=== PATIENT | female | born 1975 | race Caucasian/White ===

== ENCOUNTER 2024-02-13 13:04 | Emergency (ER) | payer MEDICAID, SELFPAY ==
[2024-02-13 13:06] VITALS: BP 112/85; PULSE 85; RESP 16; TEMP 36.3; O2SAT 98; BMI 28.3
[2024-02-13 15:05] VITALS: BP 126/90; PULSE 68; RESP 18; O2SAT 92
--- NOTE | 2024-02-13 15:30 | US_ITS ---
EXAM: US PELVIS TRANSVAGINAL CLINICAL INDICATION: pelvic pain, menorrhagia TECHNIQUE: Transvaginal pelvic ultrasound was performed with grayscale and color Doppler imaging. Transvaginal imaging was used for better evaluation of the endometrium and adnexa. COMPARISON: No relevant prior studies available. FINDINGS: UTERUS/CERVIX: Nabothian cysts are present. The uterus is heterogenous. Anteverted. There is no uterine mass. The uterus measures 9.8 x 5.1 x 4.6 cm. The endometrial stripe measures 0.7 cm in thickness. RIGHT OVARY: No significant abnormality. Blood flow is present in the right ovary. The right ovary measures 2.7 x 2.6 x 1.3 cm. LEFT OVARY: The left ovary is not visualized. FREE FLUID: None. BLADDER: Empty bladder which cannot be evaluated with this probe. US/Transvaginal Non- IMPRESSION: The left ovary is not visualized. Otherwise, no acute findings are identified. Electronically Signed: Ismael Wylie DO at 18:08 EDT ,
[2024-02-13 15:47] LABS: Absolute Lymphocyte Count 3.53 X10^3/uL (0.83-4.51); Absolute Neutrophil Count 3.8 X10^3/uL (2.0-7.7); Basophil# 0.04 X10^3/uL; Basophil% 0.5 % (0-1); Eosinophil# 0.14 X10^3/uL; Eosinophils% 1.7 % (0-5); Hematocrit 40.2 % (37-47); Hemoglobin 12.9 g/dL (12.0-15.0); Lymphocyte # 3.53 X10^3/ul (0.83-4.51); Lymphocyte % 43.2 % (19-41); Mean Corp Hgb Conc 32.1 g/dL (32-36); Mean Corpuscular Volume 99.8 fL (81-99); Mean Platelet Vol. 10.8 fl (6.2-12.0); Monocyte# 0.65 X10^3/uL; Monocyte% 7.9 % (0-10); NRBC Flagged by Analyzer 0 % (0-5); Neutrophil # 3.78 X10^3/uL (2.7-7.7); Neutrophil % 46.2 % (47-70); Platelet Count 342 K/mm3 (150-450); RBC Distribution Width CV 12.6 % (11.6-14.6); RBC Distribution Width SD 45.9 fl (35.1-43.9); Red Blood Count 4.03 M/mm3 (4.2-5.4); White Blood Count 8.2 K/mm3 (4.4-11.0)
[2024-02-13 15:48] LABS: Internal QC Validated? YES +Cl - CLEAR BKGD; Pregnancy, Serum, hCG Quali. NEGATIVE Negative
[2024-02-13] MEDS: 0.9% Normal Saline (1000mL) 1,000 ML 150 ML IV (16:04)
[2024-02-13] MEDS: traMADol 50 MG Tablet 100 MG PO (16:05)
[2024-02-13 16:16] LABS: International Normalized Ratio 0.9; Prothrombin Time (Protime)PT. 12.5 SECONDS (11.7-14.9)
[2024-02-13 16:17] LABS: Partial Thromboplast Time 25.4 Seconds (24.1-36.2)
[2024-02-13 16:20] LABS: Absolute Lymphocyte Count 3.47 X10^3/uL (0.83-4.51); Absolute Neutrophil Count 3.4 X10^3/uL (2.0-7.7); Basophil# 0.03 X10^3/uL; Basophil% 0.4 % (0-1); Eosinophil# 0.13 X10^3/uL; Eosinophils% 1.7 % (0-5); Hematocrit 36.2 % (37-47); Lymphocyte # 3.47 X10^3/ul (0.83-4.51); Lymphocyte % 44.9 % (19-41); Mean Corp Hgb Conc 33.1 g/dL (32-36); Mean Corpuscular Volume 99.5 fL (81-99); Mean Platelet Vol. 10.6 fl (6.2-12.0); Monocyte# 0.64 X10^3/uL; Monocyte% 8.3 % (0-10); NRBC Flagged by Analyzer 0 % (0-5); Neutrophil # 3.44 X10^3/uL (2.7-7.7); Neutrophil % 44.4 % (47-70); Platelet Count 329 K/mm3 (150-450); RBC Distribution Width CV 12.5 % (11.6-14.6); RBC Distribution Width SD 45.8 fl (35.1-43.9); Red Blood Count 3.64 M/mm3 (4.2-5.4); White Blood Count 7.7 K/mm3 (4.4-11.0)
[2024-02-13 16:22] LABS: Anion Gap 5 (5-15); BUN 8 mg/dL (7-18); Calcium,Total 8.8 mg/dL (8.5-10.1); Chloride 108 mmol/L (98-107); EST Glomerular Filtration Rate 81 mL/min (>60); Est Glom Filt Rate - Afr Amer 98 mL/min (>60); Glucose 120 mg/dL (74-106); Potassium 3.7 mmol/L (3.5-5.1); Sodium Level 139 mmol/L (136-145)
[2024-02-13 16:29] LABS: Color, Urine Yellow (Yellow); Glucose, Dipstick Normal (Normal); Ketone-Dipstick Negative (Negative); Leukocyte Esterase-Dipstick Negative /ul (Negative); Nitrite-Dipstick Negative (Negative); Occult Blood-Urine 250 /ul (Negative); Protein-Dipstick Negative (Negative); Urine Bilirubin Dipstick Negative (Negative); Urine Clarity Clear (Clear); Urine Urobilinogen Normal (Normal)
[2024-02-13 16:32] LABS: Internal QC Validated? YES +Cl - CLEAR BKGD; Pregnancy, Serum, hCG Quali. NEGATIVE Negative
--- NOTE | 2024-02-13 16:54 | EDS_ITS ---
HPI HPI - Female History of Present Illness Chief Complaint: Vag Bleeding Detail of Chief Complaint: Pelvic pain Informant: patient Narrative Narrative: Patient present secondary to pelvic pain and vaginal bleeding. She is a history of endometriosis and had surgery for endometriosis in 2019. She moved to the [facility] and does not have a doctor here for follow-up. She reports increasing pelvic pain for the past 3 weeks. She states it seems to be centered over the ovaries and is throbbing in nature. She developed vaginal bleeding 3 days ago with large clots. She states this is about a week earlier than her normal period. [facility] Medical History (Updated 02/13/24 @ 18:[address] Rita Humphreys MD) Endometriosis Home Medications ?Medication ?Instructions ?Recorded ?Last Taken ?Type tramadol 50 mg tablet 100 mg (2 x 50 mg) PO Q6H PRN pain 02/13/24 Unknown Rx 3 days #24 tabs Allergy/AdvReac Type Severity Reaction Status Date / Time acetaminophen (From Percocet) Allergy Mild ITCHING Verified 02/13/24 13:06 metronidazole (From Flagyl) Allergy Mild REDNESS Verified 02/13/24 13:06 oxycodone (From Percocet) Allergy Mild ITCHING Verified 02/13/24 13:06 ibuprofen AdvReac Intermediate Vomiting Verified 02/13/24 13:06 Social History Smoking Status: Never smoker ROS ROS ED Constitutional Constitutional ED: Denies chills or fever(s) Eyes Eyes: Denies discharge from eye(s) ENT ENT ED: Denies discharge from eye(s), rhinorrhea or sore throat Cardiovascular Cardiovascular: Denies chest pain or palpitations Respiratory/Chest Respiratory/Chest: Denies cough or dyspnea Gastrointestinal Gastrointestinal: Reports abdominal pain; Denies diarrhea, nausea or vomiting Genitourinary Genitourinary ED: Denies difficulty urinating or dysuria Musculoskeletal Musculoskeletal: Denies back pain or extremity pain Integumentary Denies Abrasions or rash Neurologic Neurologic: Denies headache(s) or weakness Psychiatric Psychiatric: Reports anxiety; Denies depression Allergic/Immunologic Allergic/Immunologic ED: Denies lip swelling or urticaria EXAM Physical Exam Const Vital Signs: 02/13/24 13:06 02/13/24 15:05 02/13/24 19:00 Temperature 97.3 F L 98.0 F Temperature Source Temporal Temporal Pulse Rate 85 68 66 Respiratory Rate 16 18 16 Blood Pressure 112/85 H 126/90 H 133/84 H Blood Pressure Mean 94 102 100 Pulse Ox 98 92 94 Oxygen Delivery Method Room Air Room Air Room Air 02/13/24 19:02 Temperature 98.0 F Temperature Source Pulse Rate 66 Respiratory Rate 16 Blood Pressure 133/84 H Blood Pressure Mean 100 Pulse Ox 94 Oxygen Delivery Method Positive well nourished and well developed General Appearance ED: well developed HEENT Reports moist mucous membranes Eyes EOMs intact bilaterally Chest Wall inspection of chest normal and palpation of chest normal Resp normal respiratory effort and clear to auscultation bilaterally Cardio regular rate and regular rhythm GI GI Narrative: Abdomen soft with tenderness of the lower abdomen. No guarding or rebound. No palpable masses. Extremity normal to inspection Neuro oriented x3 and no sensory deficits noted Motor Exam: strength 5/5 throughout Psych Mood & Affect: anxious MDM MDM MDM Narrative Medical decision making narrative: IV line established. Labwork obtained to evaluate for leukocytosis, anemia, and electrolyte derangement. Urinalysis obtained to evaluate for infection/hematuria. Pelvic ultrasound will be obtained to evaluate for endometrial wall thickness, mass, fibroid. History & Record Review Discussion w/independent historian: Patient and Significant other Lab Data Attestation: I reviewed the patient's lab results. Labs: Laboratory Results - last 24 hr 02/13/24 02/13/24 02/13/24 15:15 15:52 15:55 WBC 8.2 RBC 4.03 L Hgb 12.9 Hct 40.2 MCV 99.8 H MCH 32.0 MCHC 32.1 RDW Std Deviation 45.9 H RDW Coeff of Goldie 12.6 Plt Count 342 MPV 10.8 Immature Gran % (Auto) 0.500 Neut % (Auto) 46.2 L Lymph % (Auto) 43.2 H [place] % (Auto) 7.9 Eos % (Auto) 1.7 Baso % (Auto) 0.5 Absolute Neuts (auto) 3.8 Absolute Lymphs (auto) 3.53 Nucleated RBC % 0 PT 12.5 INR 0.9 APTT 25.4 Sodium 139 Potassium 3.7 Chloride 108 H Carbon Dioxide 26.0 Anion Gap 5 BUN 8 Creatinine 0.80 Estim Creat Clear Calc 81.20 Est GFR (MDRD) Af Amer 98 Est GFR (MDRD) Non-Af 81 BUN/Creatinine Ratio 10.0 Glucose 120 H Calcium 8.8 Serum , Qual NEGATIVE Urine Color Yellow Urine Clarity Clear Urine pH 6.0 Ur Specific [place] 1.020 Urine Protein Negative Urine Glucose (UA) Normal Urine Ketones Negative Urine Occult Blood 250 H Urine Nitrite Negative Urine Bilirubin Negative Urine Urobilinogen Normal Ur Leukocyte Esterase Negative Urine RBC 0-5 SEEN Urine WBC 0-5 SEEN Ur Squamous Epith Cells 5-10 SEEN Urine Bacteria 2+ Urine Mucus 1+ 02/13/24 16:14 WBC 7.7 RBC 3.64 L Hgb 12.0 Hct 36.2 L MCV 99.5 H MCH 33.0 H MCHC 33.1 RDW Std Deviation 45.8 H RDW Coeff of Goldie 12.5 Plt Count 329 MPV 10.6 Immature Gran % (Auto) 0.300 Neut % (Auto) 44.4 L Lymph % (Auto) 44.9 H [place] % (Auto) 8.3 Eos % (Auto) 1.7 Baso % (Auto) 0.4 Absolute Neuts (auto) 3.4 Absolute Lymphs (auto) 3.47 Nucleated RBC % 0 PT INR APTT Sodium Potassium Chloride Carbon Dioxide Anion Gap BUN Creatinine Estim Creat Clear Calc Est GFR (MDRD) Af Amer Est GFR (MDRD) Non-Af BUN/Creatinine Ratio Glucose Calcium Serum , Qual NEGATIVE Urine Color Urine Clarity Urine pH Ur Specific [place] Urine Protein Urine Glucose (UA) Urine Ketones Urine Occult Blood Urine Nitrite Urine Bilirubin Urine Urobilinogen Ur Leukocyte Esterase Urine RBC Urine WBC Ur Squamous Epith Cells Urine Bacteria Urine Mucus Radiography Diagnostic Testing: Clinical Impression(s) from Imaging Studies Transvaginal US 02/13/24 15:30 IMPRESSION: The left ovary is not visualized. Otherwise, no acute findings are identified. Electronically Signed: Ismael Wylie DO at 18:08 EDT , Treatment and Re-Evaluation Narrative: CBC reveals normal white count 8.2 with normal differential. Hemoglobin is 12.9. Chemistry studies are unremarkable. test negative. Urinalysis reveals 2+ bacteria with 5-10 epithelial cells. 0-5 white cells with negative nitrites. Pelvic ultrasound reveals left ovary not to be visualized. Otherwise no acute findings appreciated. On repeat evaluation patient still complains of lower abdominal pain. Clinically, she does not have symptoms or exam consistent with ovarian torsion. Given her allergies to pain medications, tramadol is the strongest medication that she can tolerate. She was given a prescription for tramadol. Patient states that her primary care physician did refer her to an [employer] in the [facility] where her other records are. I will give her the information for Dr. Kraus, on-call for no doc here if that falls through when she needs someone for follow-up. Patient comfortable with the plan. Return instructions given. Discharge Plan Triage Chief Complaint: Vag Bleeding ED Provider: Rita Humphreys Dx/Rx/DC Orders Clinical Impression: Pelvic pain, Hx of endometriosis Instructions: ED Endometriosis, ED Pelvic Pain, Unknown Cause Prescriptions: New tramadol 50 mg tablet 100 mg PO Q6H PRN (Reason: pain) 3 Days Qty: 24 0RF Primary Care Provider: Care Physician,No Primary Referrals: Rita Dong DO [Med Staff - Active Staff] - As soon as possible Care Physician,No Primary [Primary Care Provider] - Print Language: Pashto Disposition Disposition: Home, Self Care Discharge Date/Time: 02/13/24 19:03
[2024-02-13 18:14] LABS: Bacteria 2+ /hpf (None Seen); Mucous, Urine 1+ /hpf (<or=2+); Red Blood Cells-Urine 0-5 SEEN /hpf (0-5); Squamous Epithelial Cells - UA 5-10 SEEN /hpf (5-10); White Blood Cells 0-5 SEEN /hpf (0-5)
[2024-02-13 19:00] VITALS: BP 133/84; PULSE 66; RESP 16; TEMP 36.7; O2SAT 94
[2024-02-13 19:02] VITALS: BP 133/84; PULSE 66; RESP 16; TEMP 36.7; O2SAT 94
== END 2024-02-13 19:03 | disposition home or self-care (01) ==
PROVIDERS: Emergency Medicine; Emergency Provider Emergency Medicine; Visit Provider Emergency Medicine
DX: R10.2 Pelvic and perineal pain (principal); N93.9 Abnormal uterine and vaginal bleeding, unspecified; F41.9 Anxiety disorder, unspecified; Z87.42 Personal history of other diseases of the female genital tract
CPT/HCPCS: 76830; 80048; 81001; 84703; 85025; 85610; 85730; 96360; 96361; 99282; J7030; A4216